=== PATIENT | female | born 1955 | race Caucasian/White ===

== ENCOUNTER → 2024-01-01 07:42 | Outpatient (REF) | payer OTHER, SELFPAY | LOC: HWWDC 07:42 | PROVIDERS: ATTENDING PHYSICIAN Family Medicine | DX: Z12.31 Encounter for screening mammogram for malignant neoplasm of breast (principal) | CPT/HCPCS: 77063; 77067 ==

== ENCOUNTER → 2024-05-26 13:50 | Outpatient (REF) | payer OTHER, SELFPAY | LOC: HWRCS 13:50 | PROVIDERS: ATTENDING PHYSICIAN Family Medicine | DX: R01.1 Cardiac murmur, unspecified (principal); R60.0 Localized edema; R05.3 Chronic cough | CPT/HCPCS: 93306 ==

== ENCOUNTER → 2024-06-13 08:28 | Outpatient (REF) | payer OTHER, SELFPAY | LOC: HWRAD 08:28 | PROVIDERS: ATTENDING PHYSICIAN Family Medicine | DX: E83.52 Hypercalcemia (principal); R79.89 Other specified abnormal findings of blood chemistry | CPT/HCPCS: 71046 ==

== ENCOUNTER 2024-06-26 15:52 | Inpatient (IN) | payer OTHER, SELFPAY ==
[2024-06-26] VITALS (9 sets, daily range): BP systolic 121–161; BP diastolic 72–120; BMI 22.9; BMI 25.5
--- NOTE | 2024-06-26 11:35 | ED.GENMED ---
History of Present Illness
General
Chief Complaint: Abnormal Lab Value
Source: patient
Time Seen by Provider: 06/26/24 11:14
History of Present Illness
History of Present Illness:
68yoF with a history of hyperlipidemia not currently on medications presenting for evaluation of an abnormal outpatient lab. Patient has been feeling generally unwell and fatigued for the past 1-2 months. She reports decreased p.o. intake and
shortness of breath. She has been following with her PCP for these symptoms. Patient had blood work on 06/17/2024 which showed a creatinine of 1.87 as well as a calcium of 12.6. Patient was initially referred to nephrology although she was called
today and advised to go to the ED for IV fluids.
Phy Exam
General Physical Exam
General Presentation: well appearing and no apparent distress
General age: appears stated age
General Skin: warm and dry
General Habitus: normal
General Mental: alert
Cardiovascular Exam
Cardiovascular Exam: regular rate/rhythm and no edema
Pulmonary Exam
Pulmonary Exam: lungs clear, no respiratory distress, no crackles and no wheezing
Gastrointestinal Exam
Gastrointestinal Exam: non tender, soft and non distended
Skin Exam
Skin Exam: normal color and warm/dry
Psychiatric Exam
Psychiatric Exam: normal mood/affect
Course
Orders/Labs/Results
Orders:
Orders
06/26/24 11:07
Electrocardiogram (*1) Urgent
Reason for Study: Other
Other Reason for Exam: abnormal calcium level
EKG- Treatment ONCE
06/26/24 11:31
Complete Blood Count/With Diff Urgent
Comprehensive Metabolic Panel Urgent
Magnesium Urgent
06/26/24 11:34
Electrocardiogram (*1) Urgent
Reason for Study: Fatigue / Weakness
06/26/24 11:35
0.9% Sodium Chloride 1000 ml [Nss] 1,000 ml IV BOLUS
06/26/24 12:03
Intact PTH Includes Calcium Urgent
PTH Related Peptide LC-MS/MS [S] Urgent
TSH Reflex To Free T4 Urgent
06/26/24 12:08
CT Chest/abd/pel Wo Iv Cont Urgent
Comment:
Reason For Exam: Generalized weakness, ANDRES, hypercalcemia
06/26/24 13:14
Urinalysis Reflex To Culture Urgent
Date Specimen was Collected: 06/26/24
Time Specimen was Collected: 12:12
Urine Microscopic Reflex Cult Urgent
06/26/24 15:26
Add On- LAB Urgent
Tests Added?: TSH with reflex FT4, Magnesium, Phosphorus serum, PTH, PTHrP
06/26/24 15:28
IRAD CONSULT Routine
Consulting Provider: Luis Enrique Collier
Was physician already notified: Yes
Reason for Consult/Procedure: biopsy mass
Acknowledgement that appropriate orders are entered: N/A
NEPHROLOGY CONSULT Routine
Consulting Provider: Yolanda Morillo
Was physician already notified: Yes
Reason for consult: ANDRES, hypercalcemia
ONCOLOGY CONSULT Routine
Consulting Provider: Jono Cutler
Was physician already notified: Yes
Reason for consult: peritoneal mass
06/26/24 15:30
0.9% Sodium Chloride 1000 ml [Nss] 1,000 ml IV 125 mls/hr
Abnormal Lab Results
06/26/24 06/26/24
11:31 13:14
Hgb 11.4 L g/dL
(12.0-16.0)
Hct 33.4 L %
(37.0-47.0)
MCV 77.1 L fL
(81.0-99.0)
MCH 26.3 L pg
(27.0-31.0)
Absolute Lymphs (auto) 0.8 L 10^3/uL
(1.2-3.4)
Neutrophils % 82.0 H %
(42.2-75.2)
Lymphocytes % 10.1 L %
(20.5-51.1)
Chloride 97 L mmol/L
(98-107)
BUN 24 H mg/dl
(7-17)
Creatinine 1.9 H mg/dL
(0.6-1.0)
Glucose 129 H mg/dl
(70-99)
Calcium 13.0 H mg/dl
(8.4-10.2)
Ur Occult Blood Reflex 2+ A
(Negative)
Leukocyte Esterase Rfl Trace A
(Negative)
Urine Bacteria (Reflex) Few A
(Negative)
Urine Albumin (Reflex) 1+ A
(Neg - Trace)
06/26/24 11:31
06/26/24 11:31
Vital Signs
Initial and Last Documented VS:
Initial Vital Signs
Temp Pulse Resp BP Pulse Ox
97.8 F 99 18 145/91 95
06/26/24 11:04 06/26/24 11:04 06/26/24 11:04 06/26/24 11:04 06/26/24 11:04
Last Documented Vital Signs
Temp Pulse Resp BP Pulse Ox
97.8 F 85 20 148/72 99
06/26/24 11:04 06/26/24 14:15 06/26/24 14:15 06/26/24 14:00 06/26/24 14:15
MDM/Problems Addressed
Differential Diagnosis Includes:
68yoF here with elevated creatinine and calcium found on outpatient labs. She has been feeling unwell for several months with anorexia, malaise, and fatigue. Patient is afebrile and hemodynamically stable. She is well-appearing in no acute
distress. Exam reassuring. Differential diagnosis includes but is not limited to: Electrolyte abnormality, ANDRES, dehydration, malignancy
Initial ED plan: Check CBC, CMP, PTH, TSH, troponin/EKG, and UA. IV fluid bolus.
*EKG
Interpreted by ED Provider?: Yes
EKG Intrepretation Date: 06/26/24
Heart Rate: 85
Rate: normal
Rhythm: sinus
[place]: normal axis
Interval: normal interval
QRS Pattern: normal QRS
Ischemia: no ischemia
*Critical Care Note
Total Time (30-74mins, 75-104mins- exclusive of procedures): Not Applicable
Update Note
Update Note:
Creatinine 1.9 and calcium is 13. CT chest abdomen pelvis added. CT reveals a large retroperitoneal soft tissue mass, possible lymphoma. Patient was informed of this finding and was provided with a copy of her CT scan report. She was admitted
for further management
ED Attending Note
-
Portions of this chart may have been created with voice recognition software.� Occasional wrong word or��sound alike� substitutions may have occurred due to the inherent limitations of voice recognition software.
Discharge Plan
Departure
Patient Disposition: Admit
Date of Disposition: 06/26/24
Time of Disposition: 14:41
Presentation/result/management discussed w/ accepting MD/DO: Hospitalist
Discharge Problem:
Acute kidney injury, Hypercalcemia, Retroperitoneal mass
Prescriptions:
No Action
zinc sulfate 25 mg zinc (110 mg) Tablet
25 mg PO DAILY
ferrous sulfate 134 mg (27 mg iron) Tablet
134 mg PO DAILY
cholecalciferol (vitamin D3) [Vitamin D3] 25 mcg (1,000 unit) Tablet,Chewable
25 mcg PO DAILY
Referrals:
Beata Hernandez MD [Family Provider] -
Interventions
Interventions:
*Risk Screen - Suicide Last Done: 06/26/24 11:04
*General Assessment Last Done: 06/26/24 11:04
*Neglect/Abuse Screening Last Done: 06/26/24 11:04
ED- Fall Risk Assessment Last Done: 06/26/24 11:35
Discharge Date and Time
Print Language: URDU
[2024-06-26 11:41] LABS: % Basophils 0.5 % (0-2); % Eosinophils 0.9 % (0-6); % Immature Granulocytes 0.5 % (0-0.5); % Lymphocytes 10.1 % (20.5-51.1); Absolute Eosinophils 0.1 10^3/uL (0-0.7); Absolute Lymphocytes 0.8 10^3/uL (1.2-3.4); Absolute Monocytes 0.4 10^3/uL (0.1-0.6); Absolute Neutrophils 6.1 10^3/uL (1.4-6.5); Hematocrit 33.4 % (37.0-47.0); Hemoglobin 11.4 g/dL (12.0-16.0); Mean Corp Hgb Conc. 34.1 g/dL (33.0-37.0); Mean Corpuscular Hgb 26.3 pg (27.0-31.0); Mean Corpuscular Volume 77.1 fL (81.0-99.0); Nucleated Red Blood Cells % 0 %; Platelet Count 344 10^3/uL (130-400); Red Blood Cell Count 4.33 10^6/uL (4.20-5.40); Red Cell Dist. Width 14.5 % (11.5-14.5); White Blood Cell Count 7.4 10^3/uL (4.8-10.8)
[2024-06-26 11:52] LABS: ALT (SGPT) 18 U/L (0-35); AST (SGOT) 25 U/L (14-36); Albumin 3.9 g/dl (3.5-5.0); Alkaline Phosphatase 73 U/L (38-126); Blood Urea Nitrogen 24 mg/dl (7-17); Carbon Dioxide 30 mmol/L (22-30); Chloride 97 mmol/L (98-107); Estimated Creatinine Clearance 23 ml/min; Glucose 129 mg/dl (70-99); Potassium 4.1 mmol/L (3.5-5.1); Sodium 137 mmol/L (135-145); Total Bilirubin 0.7 mg/dl (0.2-1.3); Total Protein 6.9 g/dl (6.3-8.2); eGFR 28.06
[2024-06-26] MEDS: NSS 1000 IV ×2 (12:02→17:24)
[2024-06-26 13:03] LABS: TSH Reflex To Free T4 2.04 uIU/ml (0.47-4.68)
[2024-06-26 13:28] LABS: Urine Albumin 1+ (Neg - Trace); Urine Bilirubin Negative (Negative); Urine Character Clear (Clear); Urine Color Yellow; Urine Glucose Negative (Negative); Urine Ketone Negative (Negative); Urine Leukocyte Trace (Negative); Urine Nitrite Negative (Negative); Urine Occult Blood 2+ (Negative); Urine Specific Gravity 1.025 (<1.030); Urine Urobilinogen Negative (Neg - 1+)
[2024-06-26 14:01] LABS: Urine Bacteria Few (Negative)
[2024-06-26 14:02] LABS: Urine Red Blood Cell 0-2 /HPF (0-2)
--- NOTE | 2024-06-26 15:41 | HPS.HSE ---
Family Physician
-
Family Physician: Beata Hernandez MD
Chief Complaint
-
malaise
History of Present Illness
68yo F with PMHx of JIMMY came with abnormal Cr and hypercalcemia as sent by her PCP. She was prety active but started to feel unwell appr 3 mo ago with generalized malaise. She also lost 15 lbs of weight over same period of time. Noticed absence of
appetite, food tasting bad, disguss to the meat and percepting all food to bee too salty as well as not smelling right.
In ED CT chest/abd/pelvis showed thyroid nodule and large peritoenal mass circumventing aorta and IVC. No UE or LE swelling seen. ALso Hypercalcemia to 13
Medical History
Past Medical History
Past Medical History: Reports None
Past Surgical History: Reports None
Social History
Tobacco: Non-smoker
Alcohol: None
Drug: None
Family History
Family History: Not pertinent
Allergies / Home Medications
Allergies reflects when Allergies were last updated in [facility].
Home Medications with original date entered in [facility]
Allergy/Medication List:
Allergies
Allergy/AdvReac Type Severity Reaction Status Date / Time
No Known Allergies Allergy Unverified 06/26/24 11:03
Home Medications
cholecalciferol (vitamin D3) 25 mcg (1,000 unit) chewable tablet (Vitamin D3) 25 mcg PO DAILY 06/26/24
ferrous sulfate 134 mg (27 mg iron) tablet 134 mg PO DAILY 06/26/24
zinc sulfate 25 mg zinc (110 mg) tablet 25 mg PO DAILY 06/26/24
Review of Systems
-
History Source: Patient
A 12 point ROS was completed and negative except as noted: Yes
Constitutional: Reports Weight Loss and Fatigue
Physical Exam
Vital Signs
Vital Signs
Temp Pulse Resp BP Pulse Ox
97.8 F 85 20 148/72 99
06/26/24 11:04 06/26/24 14:15 06/26/24 14:15 06/26/24 14:00 06/26/24 14:15
Physical Exam
General: No Apparent Distress
HEENT: NormoCephalic, Anicteric and Other (Chronic R eyelid proptosis)
Respiratory: Clear; No Wheezes, Rales or Rhonchi
Cardiac: S1/S2 and Murmur
GI: Soft, Non Tender, Non Distended and Normal Bowel Sounds
Musculoskeletal: No Clubbing, No Cyanosis and No Edema
Skin: Warm
Neuro: Awake, Alert, Oriented and AO x 3
Psych: Calm
Laboratory Results
-
06/26/24 11:31
06/26/24 11:31
Laboratory Results
Total Bilirubin 0.7 mg/dl (0.2-1.3) 06/26/24 11:31
AST 25 U/L (14-36) 06/26/24 11:31
ALT 18 U/L (0-35) 06/26/24 11:31
Alkaline Phosphatase 73 U/L (38-126) 06/26/24 11:31
Data Reviewed
-
CT Scan: Report Reviewed by me
Lab Data: Labs Reviewed by me
Impression/Plan
-
A/P:
#Peritoneal mass
IRAD for biopsy
Onc consult
#Hypercalcemia
#ANDRES
Urine studies
IVF
Nephro consult
Check PTH, PTHrP
UA showed albuminuria
Check SPAP, UPAP
#Thyroid nodule
outpatient US thyroid
TSH WNL
#Midsystolic murmur
Echo
#Elevated BP without diagnosis of HTN
follow trend
#JIMMY
cont iron
DVT ppx on hep
Full code
I have spent at least 78min admitting the patient, reviewing chart, test results, communicating with consultants and direct patient care
[2024-06-26 16:13] LABS: Phosphorus 3.5 mg/dl (2.5-4.5)
--- NOTE | 2024-06-26 17:00 | PTCARENOTE ---
Received patient from ED via stretcher. AAOx3, ambulated to room. Assessed and oriented to room. laboratory monitor NSR. Call de la cruz in close reach.
--- NOTE | 2024-06-26 17:04 | W.CON.NEPH ---
Consultation
-
Date/Time Consultation Requested: 06/26/24 1528
Date/Time Consultation Performed: 06/26/24 1715
Requesting Provider: Eric Uribe
Performing Provider: Yolanda Waldrop
Reason for Consultation: ANDRES
Medical History
-
Chief Complaint: abnormal labs -high cr and calcium
History of Present Illness:
68yo F with no significant PMHx of JIMMY on PO iron came with abnormal Cr and hypercalcemia as sent by her PCP. Since last 2months pt felt fatigue and lack appetite, nausea. But was able to maintain fluids. Lost 15lbs. SHe has intermittent ankle edema
with out pain. Before 2 months ago she was very active. Offers no dizziness. No NSAIDs use. No CP or SOB or abd pain. no fever or sweating. No change in urine volume. Her labs noted cr 1.9 and luís 13.
In ED CT chest/abd/pelvis showed thyroid nodule and large peritoenal mass circumventing aorta and IVC, mild bilat hydronephrosis.
Past Medical History
none
Social History
Tobacco: Non-Smoker
Alcohol: None
Drug: None
Employment: Retired
Family History
Mom side heart disease, father lived upto 92
Family History: Not Pertinent
Allergies / Home Medications
Allergy/AdvReac Type Severity Reaction Status Date / Time
No Known Allergies Allergy Unverified 06/26/24 11:03
�Medication �Instructions �Recorded �Confirmed �Type
cholecalciferol (vitamin D3) 25 25 mcg PO DAILY 06/26/24 06/26/24 History
mcg (1,000 unit) chewable tablet
(Vitamin D3)
ferrous sulfate 134 mg (27 mg 134 mg PO DAILY 06/26/24 06/26/24 History
iron) tablet
zinc sulfate 25 mg zinc (110 mg) 25 mg PO DAILY 06/26/24 06/26/24 History
tablet
Review of Systems
-
All complete 12 point ROS have been inquired and found negative other than stated in HPI
All other systems: Negative unless noted
Physical Exam
Vital Signs
Vital Signs
Temp Pulse Resp BP Pulse Ox
97.8 F 83 20 161/81 99
06/26/24 11:04 06/26/24 15:45 06/26/24 15:45 06/26/24 15:00 06/26/24 16:30
Lab Results
WBC 7.4 10^3/uL (4.8-10.8) 06/26/24 11:31
RBC 4.33 10^6/uL (4.20-5.40) 06/26/24 11:31
Hgb 11.4 g/dL (12.0-16.0) L 06/26/24 11:31
Hct 33.4 % (37.0-47.0) L 06/26/24 11:31
Plt Count 344 10^3/uL (130-400) 06/26/24 11:31
Sodium 137 mmol/L (135-145) 06/26/24 11:31
Potassium 4.1 mmol/L (3.5-5.1) 06/26/24 11:31
Chloride 97 mmol/L (98-107) L 06/26/24 11:31
Carbon Dioxide 30 mmol/L (22-30) 06/26/24 11:31
BUN 24 mg/dl (7-17) H 06/26/24 11:31
Creatinine 1.9 mg/dL (0.6-1.0) H 06/26/24 11:31
eGFR 28.06 06/26/24 11:31
Glucose 129 mg/dl (70-99) H 06/26/24 11:31
Calcium TNP 06/26/24 12:03
Phosphorus 3.5 mg/dl (2.5-4.5) 06/26/24 11:31
Albumin 3.9 g/dl (3.5-5.0) 06/26/24 11:31
CT chest/abd/pelvis with out contrast:
IMPRESSION:
1). There is 7 x 11 x 14 cm intermediate density retroperitoneal soft tissue mass, the differential diagnosis for which includes lymphoma and retroperitoneal fibrosis. There is mild associated bilateral hydronephrosis
2). Atherosclerosis.
3).There is a 17 mm low-density left thyroid mass which, if clinically indicated, could be best further evaluated and followed with thyroid ultrasound
4). Degenerative disc disease at L5-S1
Physical Exam
General: Awake, Alert, Oriented, AOx3, No Distress and Nontoxic
HEENT: EOMI, Anicteric, Conjunctivae Clear, Facial Symmetry and Neck Supple
Respiratory: Clear, Normal Excursion and Nonlabored Respirations
Cardiac: S1/S2, Regular Rate/Rhythm and Murmur
Breast: Deferred by me
Abdomen: Soft, Nontender and Nondistended
Musculoskeletal: No Cyanosis and No Edema
Skin: No Rash
Neuro: Nonfocal/Grossly Intact
Psych: Mood/afflect pleasant, Insight/judgement good and Appropriate
Data Reviewed
-
Radiology: Report Reviewed by me and Discussed with Patient
Labs: Labs Reviewed by me and Discussed with Patient
Assessment/Plan
-
IMP:
Peritoneal mass
Hypercalcemia
ANDRES
Thyroid nodule
Midsystolic murmur
Elevated BP without diagnosis of HTN
JIMMY
PLan:
A/w high cr and calcium
ANDRES-no basleine to review , UA bld +ve, no RBC, 1+alb-check U PCR
given CT findings likely obst and prerenal with decreased po intake
monitor UOP if poor may consider eval for mild bilat hydro ?extrinsic compression, follow bladder scan
hypercalcemia-mass noted in CT for biopsy tomorrow by IR
PTH PTHrP pending, onc consulted
agree with IVF and dose pamidronate
microcytic anemia-check fe studies
d/w pt
[2024-06-26] MEDS: HEPARIN 5000 UNITS SC (17:26)
[2024-06-26] MEDS: AREDIA 270 MG IV (18:00)
[2024-06-26 18:11] LABS: Urine Protein 103 mg/dl (0-12); Urine Sodium 29 mmol/L (30-90)
[2024-06-26 20:04] LABS: Osmolality Urine 405 mOsm/kg (300-900)
[2024-06-26 21:32] LABS: Urine Sodium 77 mmol/L (30-90)
[2024-06-27] VITALS (10 sets, daily range): BP systolic 85–152; BP diastolic 64–87; BMI 25.5
[2024-06-27] MEDS: HEPARIN 5000 UNITS SC ×3 (00:07→23:25)
[2024-06-27] MEDS: NSS 1000 IV ×3 (02:55→20:36)
[2024-06-27] MEDS: FEOSOL PO (08:44)
[2024-06-27] MEDS: HEPARIN SC (08:44)
--- NOTE | 2024-06-27 09:08 | CON.ONC ---
Documented by User: LYN Guzman 06/27/24 10:29
Impression
Impression
7 x 11 x 14 cm intermediate density retroperitoneal soft tissue mass
Hypercalcemia
Acute kidney injury
Mild bilateral hydronephrosis
Thyroid nodule
Generalized malaise/weakness
Unintentional weight loss ~15 lbs
Anorexia
Iron deficiency anemia
Plan
Plan
Monitor CBC w/ diff, CMP daily
06/26 Hgb 11.4, Hct 33.4, MCV 77
06/26 Creat 1.9, Calcium 13
Iron panel pending
SPEP/DORY, UPEP pending
Nephrology consult
IRAD consult for biopsy
Supportive care
Await pathology from biopsy.
We will follow.
Patient History
History of Present Illness
Lindsey Morales is a 68 year old female who presented to the ER yesterday, 06/26, with complaints of generalized weakness/malaise for 3 months with a 15lb weight loss and appetite loss. She notes taste changes contributing to appetite loss and
describes food having 'no taste'. Outpatient lab work ordered by PCP revealed abnormal creatinine and acute hypercalcemia for which she was instructed to proceed to the hospital for further evaluation. CT imaging performed in the ER showed a large
peritoneal mass. She denies evidence of atypical bleeding/bruising/melena/hematuria. She denies headache, dizziness, fever/chills, night sweats, N/V/D, joint pain, rashes, or abdominal pain. She is a nonsmoker. Denies ETOH or illicit drug use.
Denies family history of colon cancer.
Past-Medical/Surgical History
Iron deficiency anemia
Patient Medication
�Medication �Instructions �Recorded �Confirmed �Last Taken �Type
cholecalciferol (vitamin D3) 25 25 mcg PO DAILY 06/26/24 06/26/24 06/25/24 History
mcg (1,000 unit) chewable tablet
(Vitamin D3)
ferrous sulfate 134 mg (27 mg 134 mg PO DAILY 06/26/24 06/26/24 06/25/24 History
iron) tablet
zinc sulfate 25 mg zinc (110 mg) 25 mg PO DAILY 06/26/24 06/26/24 06/25/24 History
tablet
Active Medications
Generic Name Dose Route Start Last Admin
Trade Name Freq PRN Reason Stop Dose Admin
Acetaminophen 650 mg 06/26/24 16:51
Acetaminophen 325 Mg Tablet PO 07/24/24 16:50
Q4HPRN PRN
mild pain/LEMA/temp> 100.4F
Bisacodyl 10 mg 06/26/24 16:51
Bisacodyl 10 Mg Rectal Suppository RECTAL 07/24/24 16:50
[id number] PRN
constipation
Ferrous Sulfate 325 mg 06/27/24 08:00 06/27/24 08:44
Ferrous Sulfate 325 Mg Tablet PO 07/25/24 07:59 Not Given
DAILY JACK
Heparin Sodium 5,000 units 06/26/24 16:51 06/27/24 08:44
Heparin 5,000 Units/Ml 1 Ml Vial SC 07/24/24 16:50 Not Given
Q8 JACK
Sodium Chloride 1,000 mls @ 125 mls/hr 06/26/24 15:30 06/27/24 02:55
Nss IV 1,000 mls
.Q8H JACK Administration
Ondansetron HCl 4 mg 06/26/24 16:51
Ondansetron 4 Mg/2 Ml Vial IV 07/24/24 16:50
Q8HPRN PRN
nausea and vomiting
Polyethylene Glycol 17 grams 06/26/24 16:51
Polyethylene Glycol Powder 17 Grams Packet PO 07/24/24 16:50
DAILYPRN PRN
constipation
Senna/Docusate Sodium 1 tablet 06/26/24 16:51
Docusate W/Senna (Dory-Colace) Tablet PO 07/24/24 16:50
BIDPRN PRN
constipation
Sodium Chloride 0 flush 06/26/24 17:00
Sodium Chloride 0.9% (Flush) Syringe IV 07/24/24 16:59
PER PROTOCOL JACK
Review of Systems
-
History Source: Patient, Coordinated Provider and Records
Constitutional: Reports Weight Loss, No Appetite and Fatigue
EENT: Reports No Symptoms
Respiratory: Reports No Symptoms
Cardiac: Reports No Symptoms
GI: Reports Anorexia
Breast: Reports N/A
: Reports No Symptoms
Musculoskeletal: Reports No Symptoms
Skin: Reports No Symptoms
Neuro: Reports No Symptoms
Endocrine: Reports No Symptoms
Hematologic/Lymphatic: Reports No Symptoms
Allergy / Immunology: Reports No Symptoms
Psych: Reports No Symptoms
Physical Exam
-
patient resting in bed. arouses to voice. she denies acute pain.
General: No Apparent Distress, Comfortable and Conversant
HEENT: Negative Jaundice
Cardiology: S1 and S2
Pulmonary: Clear
GI: Soft
Extremities: Pulses Present
Neurology: Non Focal
Skin: Warm and Dry
Hematologic / Lymphatic: Lymphadenopathy
Psych: Calm and Other (flat)
Labs
Lab Results
WBC 7.4 10^3/uL (4.8-10.8) 06/26/24 11:31
RBC 4.33 10^6/uL (4.20-5.40) 06/26/24 11:31
Hgb 11.4 g/dL (12.0-16.0) L 06/26/24 11:31
Hct 33.4 % (37.0-47.0) L 06/26/24 11:31
MCV 77.1 fL (81.0-99.0) L 06/26/24 11:31
MCH 26.3 pg (27.0-31.0) L 06/26/24 11:
MCHC 34.1 g/dL (33.0-37.0) 06/26/24 11:
RDW 14.5 % (11.5-14.5) 06/26/24 11:
Plt Count 344 10^3/uL (130-400) 06/26/24 11:
MPV 8.0 fL (7.4-10.4) 06/26/24 11:
Abs Immat Gran (auto) 0.0 10^3/uL (0-0.05) 06/26/24 11:
Absolute Neuts (auto) 6.1 10^3/uL (1.4-6.5) 06/26/24 11:
Absolute Lymphs (auto) 0.8 10^3/uL (1.2-3.4) L 06/26/24 11:
Absolute Monos (auto) 0.4 10^3/uL (0.1-0.6) 06/26/24 11:
Absolute Eos (auto) 0.1 10^3/uL (0-0.7) 06/26/24 11:
Absolute Basos (auto) 0.0 10^3/uL (0-0.2) 06/26/24 11:
Immature Gran % 0.5 % (0-0.5) 06/26/24 11:
Neutrophils % 82.0 % (42.2-75.2) H 06/26/24 11:
Lymphocytes % 10.1 % (20.5-51.1) L 06/26/24 11:
Monocytes % 6.0 % (1.7-9.3) 06/26/24 11:
Eosinophils % 0.9 % (0-6) 06/26/24 11:
Basophils % 0.5 % (0-2) 06/26/24 11:
Creatinine 1.9 mg/dL (0.6-1.0) H 06/26/24 11:
Vital Signs
Vital Signs
Temp Pulse Resp BP Pulse Ox
98.6 F 85 16 130/72 98
06/27/24 07:15 06/27/24 07:15 06/27/24 07:15 06/27/24 07:15 06/27/24 08:30
06/13/24 CXR: No active pulmonary process.
06/26/24 CT c/a/p: There is 7 x 11 x 14 cm intermediate density retroperitoneal soft tissue mass, the differential diagnosis for which includes lymphoma and retroperitoneal fibrosis. There is mild associated bilateral hydronephrosis. Atherosclerosis.
There is a 17 mm low-density left thyroid mass which, if clinically indicated, could be best further evaluated and followed with thyroid ultrasound Degenerative disc disease at L5-S1

Documented by User: Fco Flores MD 06/27/24 12:13
Plan
Plan
Monitor CBC w/ diff, CMP daily
06/26 Hgb 11.4, Hct 33.4, MCV 77
06/26 Creat 1.9, Calcium 13
Iron panel pending
SPEP/DORY, UPEP pending
Nephrology consult
IRAD consult for biopsy
Supportive care
Await pathology from biopsy.
We will follow.
Oncology/ Hematology Addendum:
Patient seen and evaluated and agree w/ SUPER[employer] note and plan as outlined
-retroperitoneal mass - for IR guided biopsy
-await pathology
Will continue to follow with you.
--- NOTE | 2024-06-27 09:43 | W.PN.HOSP.TC ---
Today's Communication/Plan
-
pending IRAD
cont IVF
Urology eval
Assessment / Plan
Assessment / Plan
68yo F with PMHx of JIMMY came with abnormal Cr and hypercalcemia as sent by her PCP. She was prety active but started to feel unwell appr 3 mo ago with generalized malaise. She also lost 15 lbs of weight over same period of time. Noticed absence of
appetite, food tasting bad, disguss to the meat and percepting all food to bee too salty as well as not smelling right.
In ED CT chest/abd/pelvis showed thyroid nodule and large peritoenal mass circumventing aorta and IVC. No UE or LE swelling seen. Also Hypercalcemia to 13, s/p Biphosphate on 06/26/24
A/P:
#Peritoneal mass
IRAD for biopsy
Onc consult
#Hypercalcemia
#ANDRES
Urine studies
IVF
Nephro consult
Check PTH, PTHrP
UA showed albuminuria
Check SPAP, UPAP
#Thyroid nodule
outpatient US thyroid
TSH WNL
#Midsystolic murmur
Echo
#Elevated BP without diagnosis of HTN
follow trend
#JIMMY
cont iron
#Mild bilateral hydronephrosis
Urology consult
currently monitoring Cr
DVT ppx on hep
Full code
I have spent at least 58min reviewing chart, test results, communicating with consultants and direct patient care
Anticipated Discharge: > 48 hours
Subjective/Interval History
-
Date of Service: June 27, 2024
Objective Data
-
Labs:
Laboratory Results
06/27/24
09:14
WBC Pending
Hgb Pending
Hct Pending
Plt Count Pending
PT Pending
INR Pending
Sodium Pending
Potassium Pending
Chloride Pending
Carbon Dioxide Pending
BUN Pending
Creatinine Pending
Glucose Pending
Calcium Pending
Total Bilirubin Pending
AST Pending
ALT Pending
Alkaline Phosphatase Pending
Vital Signs:
Vital Signs
Temp Pulse Resp BP Pulse Ox
98.6 F 85 16 130/72 98
06/27/24 07:15 06/27/24 07:15 06/27/24 07:15 06/27/24 07:15 06/27/24 08:30
Review of Systems
-
History Source: Patient
All other systems: Reviewed and negative
Physical Exam
-
General: Well Developed and Well Nourished
HEENT: Normocephalic
GI: Soft, Nontender and Nondistended
Genito-urinary: No Costovertebral Tender
Musculoskeletal: No Clubbing, No Cyanosis and No Edema
Neuro: Awake, Alert, Oriented and AO x 3
Psych: Calm
[2024-06-27 09:53] LABS: % Basophils 0.5 % (0-2); % Eosinophils 0.8 % (0-6); % Immature Granulocytes 0.6 % (0-0.5); % Lymphocytes 9.7 % (20.5-51.1); % Monocytes 5.9 % (1.7-9.3); % Neutrophils 82.5 % (42.2-75.2); Absolute Eosinophils 0.1 10^3/uL (0-0.7); Absolute Lymphocytes 0.6 10^3/uL (1.2-3.4); Absolute Monocytes 0.4 10^3/uL (0.1-0.6); Absolute Neutrophils 5.3 10^3/uL (1.4-6.5); Hematocrit 29.8 % (37.0-47.0); Mean Corp Hgb Conc. 33.6 g/dL (33.0-37.0); Mean Corpuscular Volume 77.6 fL (81.0-99.0); Mean Platelet Volume 8.6 fL (7.4-10.4); Nucleated Red Blood Cells % 0 %; Platelet Count 324 10^3/uL (130-400); Red Blood Cell Count 3.84 10^6/uL (4.20-5.40); Red Cell Dist. Width 14.6 % (11.5-14.5); White Blood Cell Count 6.4 10^3/uL (4.8-10.8)
--- NOTE | 2024-06-27 09:59 | W.PN.URO.CBU ---
Today's Communication / Plan
-
Follow BMP: if worsens progressively patient would need bilateral percutaneous nephrostomy tubes
Advise biopsy of RP mass to inform therapy
No role or indication for surgical intervention at this time
Assessment / Plan
-
Large retroperitoneal mass of unclear etiology
Mild bilateral hydronephrosis likely due to extrinsic compression of both ureters
ANDRES
Diagnosis
-
Date of Service: June 27, 2024
-
Patient Diagnosis:
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
Mild bilateral hydronephrosis
ANDRES
Subjective
-
No flank pain
No voiding dysfunction
No gross hematuria
Objective
-
Vital Signs
Temp Pulse Resp BP Pulse Ox
98.6 F 85 16 130/72 98
06/27/24 07:15 06/27/24 07:15 06/27/24 07:15 06/27/24 07:15 06/27/24 08:30
Intake and Output
06/26/24 06/27/24 06/28/24
06:59 06:59 06:59
Other:
Number of approximated MODERATE 3
amounts of urine
Laboratory Results
06/27/24 09:14
06/26/24 CT scan images personally reviewed
Review of Systems
-
Constitutional: Fatigue
Respiratory: No Symptoms
Cardiac: No Symptoms
Abdomen/GI: No Symptoms
: No Symptoms
Neurological: No Symptoms
Physical Exam
-
General - well developed, well nourished, no acute distress
Abdomen - soft, non-tender
Skin - warm & dry with no rash
Neuro - AOx3, no motor deficits
Counseling
-
RP mass biopsy advised
[2024-06-27 10:00] LABS: INR 1.25; PT 15.5 Sec (11.4-14.6)
[2024-06-27 10:24] LABS: ALT (SGPT) 16 U/L (0-35); AST (SGOT) 24 U/L (14-36); Albumin 3.4 g/dl (3.5-5.0); Alkaline Phosphatase 63 U/L (38-126); Blood Urea Nitrogen 20 mg/dl (7-17); Calcium 11.7 mg/dl (8.4-10.2); Carbon Dioxide 25 mmol/L (22-30); Chloride 104 mmol/L (98-107); Estimated Creatinine Clearance 29 ml/min; Glucose 103 mg/dl (70-99); Iron 41 ug/dl (37-170); Magnesium 1.9 mg/dl (1.6-2.3); Potassium 4.3 mmol/L (3.5-5.1); Sodium 138 mmol/L (135-145); Total Bilirubin 0.7 mg/dl (0.2-1.3); Total Protein 6.3 g/dl (6.3-8.2); eGFR 37.26
[2024-06-27 10:34] LABS: Vitamin D, 25-OH*** 17.1 ng/mL (30-80)
[2024-06-27 10:35] LABS: Percent Saturation 19 % (20-50); Total Iron Binding Capacity 211 ug/dl (265-497)
[2024-06-27 11:08] LABS: Glycohemoglobin (HgbA1c) 6.2 % (4.0-5.6)
--- NOTE | 2024-06-27 14:01 | W.PN.NEPH.PH ---
Today's Communication / Plan
-
- for biopsy today
- trend Cr
Assessment/Plan
-
IMP:
Peritoneal mass
Hypercalcemia
ANDRES
Thyroid nodule
Midsystolic murmur
Elevated BP without diagnosis of HTN
JIMMY
PLan:
A/w high cr and calcium
ANDRES-no baseline to review , UA bld +ve, no RBC, 1+alb-check U PCR
given CT findings likely obst and prerenal with decreased po intake
eval'd if kidney function worsening, might need bilateral PCN tubes.
hypercalcemia-s/p pamidronate and improving now. okay to c/w NS at 125cc/hr
mass noted in CT for biopsy today by IR
PTH PTHrP pending, onc consulted
microcytic anemia-check fe studies
d/w pt
-
-
Date of Service: June 27, 2024
CC / HPI / ROS
-
Chief Complaint:
hypercalcemia
History of Present Illness:
Cr elevated to 1.9, now down to 1.5
calcium peak 13, now down to 11.7
Review of Systems:
feeling well, just tired
Labs
-
Labs:
WBC 6.4 10^3/uL (4.8-10.8) 06/27/24 09:14
RBC 3.84 10^6/uL (4.20-5.40) L 06/27/24 09:14
Hgb 10.0 g/dL (12.0-16.0) L 06/27/24 09:14
Hct 29.8 % (37.0-47.0) L 06/27/24 09:14
Plt Count 324 10^3/uL (130-400) 06/27/24 09:14
Sodium 138 mmol/L (135-145) 06/27/24 09:14
Potassium 4.3 mmol/L (3.5-5.1) 06/27/24 09:14
Chloride 104 mmol/L (98-107) 06/27/24 09:14
Carbon Dioxide 25 mmol/L (22-30) 06/27/24 09:14
BUN 20 mg/dl (7-17) H 06/27/24 09:14
Creatinine 1.5 mg/dL (0.6-1.0) H 06/27/24 09:14
eGFR 37.26 06/27/24 09:14
Glucose 103 mg/dl (70-99) H 06/27/24 09:14
Calcium 11.7 mg/dl (8.4-10.2) H 06/27/24 09:14
Phosphorus 3.5 mg/dl (2.5-4.5) 06/26/24 11:31
Albumin 3.4 g/dl (3.5-5.0) L 06/27/24 09:14
Physical Exam
-
Vital Signs:
Vital Signs
Temp Pulse Resp BP Pulse Ox
98.4 F 85 23 152/73 97
06/27/24 13:53 06/27/24 13:53 06/27/24 13:53 06/27/24 13:53 06/27/24 13:53
Cardiovascular:: Regular rate and rhythm
Respiratory:: Bilateral: CTA
Lung Excursion:: Normal
Abdomen:: Nontender and Soft
Bowel Sounds:: Normal
Extremity Edema:: None: Bilateral:
Kaufman Catheter: No
[2024-06-27] MEDS: NSS IV (23:25)
[2024-06-28 00:24] VITALS: BP 121/66
[2024-06-28] MEDS: NSS 1000 IV (04:30)
[2024-06-28 06:09] LABS: Hematocrit 27.3 % (37.0-47.0); Hemoglobin 9.3 g/dL (12.0-16.0)
[2024-06-28 06:27] LABS: Blood Urea Nitrogen 16 mg/dl (7-17); Calcium 10.5 mg/dl (8.4-10.2); Carbon Dioxide 25 mmol/L (22-30); Chloride 106 mmol/L (98-107); Estimated Creatinine Clearance 31 ml/min; Glucose 93 mg/dl (70-99); Potassium 3.8 mmol/L (3.5-5.1); Sodium 139 mmol/L (135-145); eGFR 40.47
[2024-06-28 07:15] VITALS: BP 160/77
[2024-06-28] MEDS: HEPARIN 5000 UNITS SC ×3 (08:57→23:14)
[2024-06-28] MEDS: FEOSOL 325 MG PO (09:02)
[2024-06-28] MEDS: MIRALAX 17 GRAMS PO (09:14)
[2024-06-28 10:08] LABS: Intact PTH 13.2 pg/ml (13.6-85.8)
--- NOTE | 2024-06-28 11:05 | W.PN.URO.CBU ---
Today's Communication / Plan
-
no new inputt
Assessment / Plan
-
Large retroperitoneal mass of unclear etiology
Mild bilateral hydronephrosis likely due to extrinsic compression of both ureters
ANDRES
renal fxn improving
Diagnosis
-
Date of Service: June 28, 2024
-
Patient Diagnosis:
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
Mild bilateral hydronephrosis
ANDRES
Objective
-
Vital Signs
Temp Pulse Resp BP Pulse Ox
98.2 F 81 16 160/77 95
06/28/24 07:15 06/28/24 07:15 06/28/24 07:15 06/28/24 07:15 06/28/24 07:15
Intake and Output
06/27/24 06/28/24 06/29/24
06:59 06:59 06:59
Intake Total 600 / 1080 480 / 480
Balance 600 / 1080 480 / 480
Intake:
Oral fluids 600 / 1080 480 / 480
Other:
Number of approximated MODERATE 3 3 2
amounts of urine
Laboratory Results
06/28/24 05:48
06/28/24 05:48
Physical Exam
-
General - well developed, well nourished, no acute distress
Chest - clear bilaterally
Abdomen - soft, non-tender, positive bowel sounds, no CVAT, no incisional pain or distention
Genitalia - normal
Rectal - normal
Skin - warm & dry with no rash
Neuro - AOx3, no motor deficits
Extremities - no clubbing, no cyanosis, no edema
Incision - clean, dry
Dressing - clean, dry, intact
--- NOTE | 2024-06-28 12:47 | W.PN.HOSP.TC ---
Today's Communication/Plan
-
stop IVF
monitor Ca and Cr
Pending final Onc plan
Assessment / Plan
Assessment / Plan
68yo F with PMHx of JIMMY came with abnormal Cr and hypercalcemia as sent by her PCP. She was prety active but started to feel unwell appr 3 mo ago with generalized malaise. She also lost 15 lbs of weight over same period of time. Noticed absence of
appetite, food tasting bad, disguss to the meat and percepting all food to bee too salty as well as not smelling right.
In ED CT chest/abd/pelvis showed thyroid nodule and large peritoenal mass circumventing aorta and IVC. No UE or LE swelling seen. Also Hypercalcemia to 13, s/p Biphosphate on 06/26/24
A/P:
#Peritoneal mass
IRAD did biopsy
Path pending
Onc consult
#Hypercalcemia
#ANDRES
Urine studies
IVF
Nephro consult: cont hydration, s/p pamidromate
PTH low
check PTHrP
UA showed albuminuria
Check SPAP, UPAP
#Thyroid nodule
outpatient US thyroid
TSH WNL
#Midsystolic murmur 2/2 moderate
Echo done in May 2024
#Elevated BP without diagnosis of HTN
follow trend
#JIMMY
cont iron
#Mild bilateral hydronephrosis
Urology consult: if worsening kidney function - will need perutaneous nephrostomy
currently monitoring Cr
DVT ppx on hep
Full code
I have spent at least 38min reviewing chart, test results, communicating with consultants and direct patient care
Anticipated Discharge: 24 - 48 hours
Subjective/Interval History
-
Date of Service: June 28, 2024
Objective Data
-
Labs:
Laboratory Results
06/28/24
05:48
Hgb 9.3 L
Hct 27.3 L
Sodium 139
Potassium 3.8
Chloride 106
Carbon Dioxide 25
BUN 16
Creatinine 1.4 H
Glucose 93
Calcium 10.5 H
Vital Signs:
Vital Signs
Temp Pulse Resp BP Pulse Ox
98.2 F 81 16 160/77 95
06/28/24 07:15 06/28/24 07:15 06/28/24 07:15 06/28/24 07:15 06/28/24 07:15
I&O
06/27/24 06/28/24 06/29/24
06:59 06:59 06:59
Intake Total 600 / 1080 480 / 480
Balance 600 / 1080 480 / 480
Review of Systems
-
History Source: Patient
All other systems: Reviewed and negative
Physical Exam
-
General: No Apparent Distress
HEENT: Normocephalic
Respiratory: Clear to Auscultation
Cardiac: Regular Rhythm
GI: Soft, Nontender and Nondistended
Neuro: Awake, Alert, Oriented and AO x 3
--- NOTE | 2024-06-28 13:36 | W.PN.NEPH.PH ---
Today's Communication / Plan
-
- awaiting path onc
- stop IVF
Assessment/Plan
-
IMP:
Peritoneal mass
Hypercalcemia
ANDRES
Thyroid nodule
Midsystolic murmur
Elevated BP without diagnosis of HTN
JIMMY
PLan:
A/w high cr and calcium
ANDRES-no baseline to review , UA bld +ve, no RBC, 1+alb-check UPCR
given CT findings likely obst and prerenal with decreased po intake
eval'd if kidney function worsening, might need bilateral PCN tubes.
hypercalcemia-s/p pamidronate and improving now. encouraging PO intake, stopped IVF
s/p biopsy, pending path and onc
PTH low, PTHrP pending
microcytic anemia-check fe studies
d/w pt
-
-
Date of Service: June 28, 2024
CC / HPI / ROS
-
Chief Complaint:
hypercalcemia
History of Present Illness:
Cr elevated to 1.9, now down to 1.4
calcium peak 13, now down to 10.5
Review of Systems:
feeling well, just tired
Labs
-
Labs:
WBC 6.4 10^3/uL (4.8-10.8) 06/27/24 09:14
RBC 3.84 10^6/uL (4.20-5.40) L 06/27/24 09:14
Hgb 9.3 g/dL (12.0-16.0) L 06/28/24 05:48
Hct 27.3 % (37.0-47.0) L 06/28/24 05:48
Plt Count 324 10^3/uL (130-400) 06/27/24 09:14
Sodium 139 mmol/L (135-145) 06/28/24 05:48
Potassium 3.8 mmol/L (3.5-5.1) 06/28/24 05:48
Chloride 106 mmol/L (98-107) 06/28/24 05:48
Carbon Dioxide 25 mmol/L (22-30) 06/28/24 05:48
BUN 16 mg/dl (7-17) 06/28/24 05:48
Creatinine 1.4 mg/dL (0.6-1.0) H 06/28/24 05:48
eGFR 40.47 06/28/24 05:48
Glucose 93 mg/dl (70-99) 06/28/24 05:48
Calcium 10.5 mg/dl (8.4-10.2) H 06/28/24 05:48
Phosphorus 3.5 mg/dl (2.5-4.5) 06/26/24 11:31
Albumin 3.4 g/dl (3.5-5.0) L 06/27/24 09:14
Physical Exam
-
Vital Signs:
Vital Signs
Temp Pulse Resp BP Pulse Ox
98.2 F 81 16 160/77 95
06/28/24 07:15 06/28/24 07:15 06/28/24 07:15 06/28/24 07:15 06/28/24 07:15
Cardiovascular:: Regular rate and rhythm
Respiratory:: Bilateral: CTA
Lung Excursion:: Normal
Abdomen:: Nontender and Soft
Bowel Sounds:: Normal
Extremity Edema:: None: Bilateral:
Kaufman Catheter: No
[2024-06-28 15:05] VITALS: BP 144/72
--- NOTE | 2024-06-28 18:09 | PTCARENOTE ---
Patient with dinner accu check of 67. Juice given, accucheck than 61. Juice given for second time and accucheck 58. Dr. Price notified. Dextrose pushed see SARAH. Acccassyeck after 3rd treatment 134. Lantus dose changed for 20:00 to 15 units. Blood
sugar to be checked per protocol.
[2024-06-28] MEDS: SENOKOT-S 1 TABLET PO (20:42)
[2024-06-28 23:35] VITALS: BP 131/79
[2024-06-29 07:10] VITALS: BP 160/88
[2024-06-29 08:53] LABS: Blood Urea Nitrogen 13 mg/dl (7-17); Calcium 10.8 mg/dl (8.4-10.2); Carbon Dioxide 24 mmol/L (22-30); Chloride 101 mmol/L (98-107); Estimated Creatinine Clearance 31 ml/min; Glucose 105 mg/dl (70-99); Potassium 4.1 mmol/L (3.5-5.1); Sodium 137 mmol/L (135-145); eGFR 40.47
[2024-06-29] MEDS: HEPARIN 5000 UNITS SC ×3 (08:53→23:13)
[2024-06-29] MEDS: FEOSOL 325 MG PO (08:53)
[2024-06-29] MEDS: DULCOLAX 10 MG RECTAL (08:55)
--- NOTE | 2024-06-29 12:33 | W.PN.NEPH.PH ---
Today's Communication / Plan
-
- IVF
Assessment/Plan
-
IMP:
Peritoneal mass
Hypercalcemia
ANDRES
Thyroid nodule
Midsystolic murmur
Elevated BP without diagnosis of HTN
JIMMY
PLan:
A/w high cr and calcium
ANDRES-no baseline to review , UA bld +ve, no RBC, 1+alb-check UPCR
given CT findings likely obst and prerenal with decreased po intake
eval'd if kidney function worsening, might need bilateral PCN tubes but for now Cr steady
hypercalcemia-s/p pamidronate, stabilizing in the 10 range. will trial another round of IVF today.
s/p biopsy, pending path and onc
PTH low, PTHrP pending
microcytic anemia-check fe studies
d/w pt
-
-
Date of Service: June 29, 2024
CC / HPI / ROS
-
Chief Complaint:
hypercalcemia
History of Present Illness:
Cr elevated to 1.9, now down to 1.4
calcium peak 13, now down to 10.8
Review of Systems:
feeling well, just tired
Labs
-
Labs:
WBC 6.4 10^3/uL (4.8-10.8) 06/27/24 09:14
RBC 3.84 10^6/uL (4.20-5.40) L 06/27/24 09:14
Hgb 9.3 g/dL (12.0-16.0) L 06/28/24 05:48
Hct 27.3 % (37.0-47.0) L 06/28/24 05:48
Plt Count 324 10^3/uL (130-400) 06/27/24 09:14
Sodium 137 mmol/L (135-145) 06/29/24 07:30
Potassium 4.1 mmol/L (3.5-5.1) 06/29/24 07:30
Chloride 101 mmol/L (98-107) 06/29/24 07:30
Carbon Dioxide 24 mmol/L (22-30) 06/29/24 07:30
BUN 13 mg/dl (7-17) 06/29/24 07:30
Creatinine 1.4 mg/dL (0.6-1.0) H 06/29/24 07:30
eGFR 40.47 06/29/24 07:30
Glucose 105 mg/dl (70-99) H 06/29/24 07:30
Calcium 10.8 mg/dl (8.4-10.2) H 06/29/24 07:30
Phosphorus 3.5 mg/dl (2.5-4.5) 06/26/24 11:31
Albumin 3.4 g/dl (3.5-5.0) L 06/27/24 09:14
Physical Exam
-
Vital Signs:
Vital Signs
Temp Pulse Resp BP Pulse Ox
98.5 F 93 16 160/88 95
06/29/24 07:10 06/29/24 07:10 06/29/24 07:10 06/29/24 07:10 06/29/24 07:10
Cardiovascular:: Regular rate and rhythm
Respiratory:: Bilateral: CTA
Lung Excursion:: Normal
Abdomen:: Nontender and Soft
Bowel Sounds:: Normal
Extremity Edema:: None: Bilateral:
Kaufman Catheter: No
--- NOTE | 2024-06-29 12:47 | W.PN.HOSP.TC ---
Today's Communication/Plan
-
IVF as per nephro
BMP in AM
Pending final Onc plan
Assessment / Plan
Assessment / Plan
68yo F with PMHx of JIMMY came with abnormal Cr and hypercalcemia as sent by her PCP. She was prety active but started to feel unwell appr 3 mo ago with generalized malaise. She also lost 15 lbs of weight over same period of time. Noticed absence of
appetite, food tasting bad, disguss to the meat and percepting all food to bee too salty as well as not smelling right.
In ED CT chest/abd/pelvis showed thyroid nodule and large peritoenal mass circumventing aorta and IVC. No UE or LE swelling seen. Also Hypercalcemia to 13, s/p Biphosphate on 06/26/24. Improved on IVF
A/P:
#Peritoneal mass
IRAD did biopsy
Path pending
Onc consult
#Hypercalcemia
#ANDRES
Urine studies
IVF
Nephro consult: cont hydration, s/p pamidromate
PTH low
check PTHrP
UA showed albuminuria
Check SPAP, UPAP
#Thyroid nodule
outpatient US thyroid
TSH WNL
#Midsystolic murmur 2/2 moderate
Echo done in May 2024
#Elevated BP without diagnosis of HTN
follow trend
#JIMMY
cont iron
#Mild bilateral hydronephrosis
Urology consult: if worsening kidney function - will need perutaneous nephrostomy
currently monitoring Cr
DVT ppx on hep
Full code
I have spent at least 38min reviewing chart, test results, communicating with consultants and direct patient care
Anticipated Discharge: 24 - 48 hours
Subjective/Interval History
-
Date of Service: June 29, 2024
Objective Data
-
Labs:
Laboratory Results
06/29/24
07:30
Sodium 137
Potassium 4.1
Chloride 101
Carbon Dioxide 24
BUN 13
Creatinine 1.4 H
Glucose 105 H
Calcium 10.8 H
Vital Signs:
Vital Signs
Temp Pulse Resp BP Pulse Ox
98.5 F 93 16 160/88 95
06/29/24 07:10 06/29/24 07:10 06/29/24 07:10 06/29/24 07:10 06/29/24 07:10
I&O
06/28/24 06/29/24 06/30/24
06:59 06:59 06:59
Intake Total 600 / 1080 1680 / 1680
Balance 600 / 1080 1680 / 1680
Review of Systems
-
History Source: Patient
All other systems: Reviewed and negative
Physical Exam
-
General: No Apparent Distress
HEENT: Normocephalic
Respiratory: Clear to Auscultation
Cardiac: Regular Rhythm
GI: Soft, Nontender and Nondistended
Musculoskeletal: No Clubbing, No Cyanosis and No Edema
Neuro: Awake, Alert, Oriented and AO x 3
Psych: Calm
--- NOTE | 2024-06-29 13:07 | W.PN.URO.CBU ---
Today's Communication / Plan
-
no new input
Assessment / Plan
-
Large retroperitoneal mass of unclear etiology
Mild bilateral hydronephrosis likely due to extrinsic compression of both ureters
ANDRES
renal fxn improving
Diagnosis
-
Date of Service: June 29, 2024
-
Patient Diagnosis:
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
Mild bilateral hydronephrosis
ANDRES
Objective
-
Vital Signs
Temp Pulse Resp BP Pulse Ox
98.5 F 93 16 160/88 95
06/29/24 07:10 06/29/24 07:10 06/29/24 07:10 06/29/24 07:10 06/29/24 07:10
Intake and Output
06/28/24 06/29/24 06/30/24
06:59 06:59 06:59
Intake Total 600 / 1080 1680 / 1680
Balance 600 / 1080 1680 / 1680
Intake:
Oral fluids 600 / 1080 1680 / 1680
Other:
Number of approximated MODERATE 3 3
amounts of urine
Laboratory Results
06/28/24 05:48
06/29/24 07:30
Physical Exam
-
General - well developed, well nourished, no acute distress
Chest - clear bilaterally
Abdomen - soft, non-tender, positive bowel sounds, no CVAT, no incisional pain or distention
Genitalia - normal
Rectal - normal
Skin - warm & dry with no rash
Neuro - AOx3, no motor deficits
Extremities - no clubbing, no cyanosis, no edema
Incision - clean, dry
Dressing - clean, dry, intact
[2024-06-29] MEDS: NSS 1000 IV (13:33)
[2024-06-29 13:34] LABS: 24 Hour Urine Total Volume Random mL; Urine Collection Length Random hr; Urine Free Kappa Light Chains 261.97 mg/L (0.00-32.90); Urine Free Lambda Light Chains 61.99 mg/L (0.00-3.79)
[2024-06-29] MEDS: SENOKOT-S PO (14:16)
[2024-06-29] MEDS: MIRALAX 17 GRAMS PO (14:22)
[2024-06-29 15:28] VITALS: BP 142/82
[2024-06-29 23:30] VITALS: BP 139/74
[2024-06-30] MEDS: NSS 1000 IV (02:13)
[2024-06-30 06:00] VITALS: BMI 26.5
[2024-06-30 08:00] VITALS: BP 139/76
[2024-06-30 08:35] LABS: Blood Urea Nitrogen 12 mg/dl (7-17); Calcium 10.3 mg/dl (8.4-10.2); Carbon Dioxide 24 mmol/L (22-30); Chloride 104 mmol/L (98-107); Estimated Creatinine Clearance 36 ml/min; Glucose 106 mg/dl (70-99); Potassium 4.1 mmol/L (3.5-5.1); Sodium 139 mmol/L (135-145)
--- NOTE | 2024-06-30 09:22 | W.PN.HOSP.TC ---
Today's Communication/Plan
-
pt wants to go home
d/c IF cleared by all consultants
Assessment / Plan
Assessment / Plan
pt is a 68 year old female
Hypercalcemia with ANDRES--due to retroperitoneal mass--apprec renal/urology--creat improving to 1.2 today, calcium 10.3--urine negative for free monoclonal light chains--s/p pamidronate--PTH low, PTH related peptide pending
Peritoneal mass--s/p IR biopsy--path pending--apprec heme/IR--outpt follow up for biopsy results
Thyroid nodule--will need outpatient US thyroid--TSH WNL
Midsystolic murmur due to moderate --Echo done in May 2024
Elevated BP without diagnosis of HTN--follow trend--BP improved--no meds
chronic anemia--hx of iron deficiency anemia--cont iron
Mild bilateral hydronephrosis--due to retroperitoneal mass
DVT ppx on hep
Full code
Anticipated Discharge: Today
Subjective/Interval History
-
Date of Service: June 30, 2024
pt wants to go home
Objective Data
-
Labs:
Laboratory Results
06/30/24
06:55
Sodium 139
Potassium 4.1
Chloride 104
Carbon Dioxide 24
BUN 12
Creatinine 1.2 H
Glucose 106 H
Calcium 10.3 H
Vital Signs:
max temp for 24 hours
06/29/24
23:30
Temp 99.4 F
Vital Signs
Temp Pulse Resp BP Pulse Ox
99.2 F 94 17 139/76 95
06/30/24 08:00 06/30/24 08:00 06/30/24 08:00 06/30/24 08:00 06/30/24 08:00
I&O
06/29/24 06/30/24 07/01/24
06:59 06:59 06:59
Intake Total 1679 / 1679 1140 / 1140
Balance 1679 / 1679 1140 / 1140
Review of Systems
-
All other systems: Reviewed and negative
Physical Exam
-
General: Well Developed, Well Nourished and No Apparent Distress
HEENT: Normocephalic and Atraumatic
Respiratory: Clear to Auscultation; Negative Wheezes or Rhonchi
Cardiac: Regular Rhythm, S1/S2 and Murmur
GI: Soft, Nontender, Nondistended and Normal Bowel Sounds
Musculoskeletal: No Clubbing, No Cyanosis and No Edema
Neuro: Awake and Alert
[2024-06-30] MEDS: FEOSOL 325 MG PO (10:05)
[2024-06-30] MEDS: HEPARIN SC (10:07)
--- NOTE | 2024-06-30 11:45 | W.PN.ONC2 ---
Addendum entered and electronically signed by LYN Resendiz 07/08/24 12:03:
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 She has a hospital follow up with Dr. Gutierrez 07/15/2024 to review pathology and next steps in management.
Original Note:
Today's Communication / Plan
-
follow up SPEP/DORY, rPTH
Check LDH, uric acid, retic, LDH, haptoglobin. If uric acid is elevated consider allopurinol vs rasburicase depending on degree of elevation
follow for pathology, OP follow up will be arranged to review upon discharge
Impression
Impression
7 x 11 x 14 cm intermediate density retroperitoneal soft tissue mass
Hypercalcemia s/p aredia 06/26 with improvement of calcium 13->10.3. Low PTH
elevated urine kappa 262, urine lambda 62, UPEP negative for monoclonal protein
Acute kidney injury improved
Mild bilateral hydronephrosis due to extrinsic compression of both ureters
Thyroid nodule
Generalized malaise/weakness
Unintentional weight loss ~15 lbs
Anorexia
microcytosis
murmur
Plan
Plan
Monitor CBC w/ diff, CMP daily
Iron panel c/w AOCD
f/u SPEP/DORY, rPTH,
Check LDH, uric acid, retic, LDH, haptoglobin
Nephrology following
IR RP biopsy, follow for path
Subjective/Objective
Chief Complaint
creatinine 1.2, calcium 10.3, Hgb 9.3g/dL
Subjective
afebrile, no hypoxia or hypotension
denies pain, sob, dizziness, n/v/d/c or ab pain
ambulating independently
Vital Signs:
Vital Signs
Temp Pulse Resp BP Pulse Ox
99.2 F 94 17 139/76 95
08/26/24 08:00 06/30/24 08:00 06/30/24 08:00 06/30/24 08:00 06/30/24 08:00
Lab Results:
Laboratory Data
WBC 6.4 10^3/uL (4.8-10.8) 06/27/24 09:14
Hgb 9.3 g/dL (12.0-16.0) L 06/28/24 05:48
Plt Count 324 10^3/uL (130-400) 06/27/24 09:14
PT 15.5 Sec (11.4-14.6) H 06/27/24 09:14
INR 1.25 06/27/24 09:14
eGFR 48.70 06/30/24 06:55
Physical Exam
HEENT: Moist Mucous Membranes; No Jaundice
Cardiology: Normal Sinus Rhythm and Murmur
Pulmonary: Clear
GI: Soft
Extremities: Pulses Present; No Edema
Neuro: Non Focal
Review of Systems
Review of Systems
ROS notable for subjective, otherwise negative
--- NOTE | 2024-06-30 12:08 | W.PN.NEPH.PH ---
Today's Communication / Plan
-
follow BMP
Assessment/Plan
-
IMP:
Peritoneal mass
Hypercalcemia
ANDRES
Thyroid nodule
Midsystolic murmur
Elevated BP without diagnosis of HTN
JIMMY
Plan:
await bx results
needs OP hem/onc f/u
BMP in 1 week to follow calcium
await PTHrP
ok for dc from renal standpoint
-
-
Date of Service: June 30, 2024
CC / HPI / ROS
-
Chief Complaint:
hypercalcemia
History of Present Illness:
Cr elevated to 1.9, now down to 1.2
calcium peak 13, now down to 10.3
BP stable
Review of Systems:
feeling well
no CP/SOB
Labs
-
Labs:
WBC 6.4 10^3/uL (4.8-10.8) 06/27/24 09:14
RBC 3.84 10^6/uL (4.20-5.40) L 06/27/24 09:14
Hgb 9.3 g/dL (12.0-16.0) L 06/28/24 05:48
Hct 27.3 % (37.0-47.0) L 06/28/24 05:48
Plt Count 324 10^3/uL (130-400) 06/27/24 09:14
Sodium 139 mmol/L (135-145) 06/30/24 06:55
Potassium 4.1 mmol/L (3.5-5.1) 06/30/24 06:55
Chloride 104 mmol/L (98-107) 06/30/24 06:55
Carbon Dioxide 24 mmol/L (22-30) 06/30/24 06:55
BUN 12 mg/dl (7-17) 06/30/24 06:55
Creatinine 1.2 mg/dL (0.6-1.0) H 06/30/24 06:55
eGFR 48.70 06/30/24 06:55
Glucose 106 mg/dl (70-99) H 06/30/24 06:55
Calcium 10.3 mg/dl (8.4-10.2) H 06/30/24 06:55
Phosphorus 3.5 mg/dl (2.5-4.5) 06/26/24 11:31
Albumin 3.4 g/dl (3.5-5.0) L 06/27/24 09:14
Physical Exam
-
Vital Signs:
Vital Signs
Temp Pulse Resp BP Pulse Ox
99.2 F 94 17 139/76 95
06/30/24 08:00 06/30/24 08:00 06/30/24 08:00 06/30/24 08:00 06/30/24 08:00
Cardiovascular:: Regular rate and rhythm
Respiratory:: Bilateral: CTA
Lung Excursion:: Normal
Abdomen:: Nontender and Soft
Bowel Sounds:: Normal
Extremity Edema:: None: Bilateral:
[2024-06-30 13:07] LABS: Reticulocyte Count 1.4 % (0.4-2.8)
--- NOTE | 2024-06-30 13:40 | CM ---
CM met with Lindsey this afternoon prior to her discharge. She and her denied need for any services at this time. No concerns about medication or food costs.
Lindsey and her live in a 2 story home with attached garage. 1 entry step into the home, 12 to the second floor. Lindsey is (I) amb and adls, denies hx of SNF, VN, or DME.
Plan: Lindsey will return home with her with no needs identified.
PCP: Beata Hernandez
Pharmacy: [facility] in [place]
[2024-06-30 13:50] VITALS: BP 158/86
[2024-06-30 14:26] LABS: LDH 268 U/L (120-246); Uric Acid 3.9 mg/dl (2.5-6.2)
--- NOTE | 2024-06-30 14:26 | W.DCSUMMARY ---
Discharge Summary
Discharge Data
Date of Admission: 06/26/24
Date of Discharge: 06/30/24
-
Pending Results: Yes
Additional Pending Results:
pathology results from biopsy
Hospital Course
Primary care physician : Beata Hernandez
Principal Discharge diagnosis : Hypercalcemia with acute kidney injury and mild bilateral hydronephrosis due to retroperitoneal mass, thyroid nodule
Chronic Discharge diagnosis : Moderate aortic stenosis, elevated blood pressures without a diagnosis of essential hypertension, anemia of chronic disease along with iron deficiency anemia
Hospital Course : Patient is a 68-year-old female with a history of iron deficiency anemia who came in with an abnormal creatinine and hypercalcemia and was sent in by her primary care physician. She started to feel unwell approximately 3 months
prior to admission with generalized malaise. She also lost 15 pounds of weight over the same time period. She had an absence of appetite, food tasting bad, food not smelling right. CAT scan done of the chest abdomen and pelvis showed a thyroid
nodule and a large peritoneal mass circumventing the aorta and inferior vena cava. Calcium was noted to be 13. Patient was admitted.
Problem #1: Hypercalcemia with acute kidney injury and mild bilateral hydronephrosis due to the retroperitoneal mass. Patient was admitted and seen in consultation by nephrology, urology, and oncology. Patient underwent interventional radiology
biopsy of the retroperitoneal mass. Results are pending at this time. Patient did not require bilateral percutaneous nephrostomy tubes as creatinine did improve with IV fluids. Patient received pamidronate. Creatinine slowly improved down to 1.2
at the day of discharge and calcium of 10.3 on the day of discharge. Urinalysis was checked and the urine was also negative for free monoclonal light chains. Intact PTH was low but the parathyroid related peptide is still pending at this time.
Patient will follow-up with hematology/oncology for the biopsy results as an outpatient.
Problem #2: Thyroid nodule. This was found incidentally on the CAT scan. TSH was checked and was within normal limits. Patient will need an outpatient ultrasound of the thyroid.
Problem #3: All other medical issues. These include Moderate aortic stenosis, elevated blood pressures without a diagnosis of essential hypertension, anemia of chronic disease along with iron deficiency anemia. His medical issues were stable
during her hospitalization. Medications were continued as able. Patient did not require blood pressure medicines here in the hospital.
Patient has been cleared for discharge by nephrology. If there are any questions regarding this dictation or her hospital stay, please not hesitate to call. Our office number is [phone].
Important imaging findings :
CT CHEST/ABDOMEN/PELVIS IMPRESSION:
1). There is 7 x 11 x 14 cm intermediate density retroperitoneal soft tissue mass, the differential diagnosis for which includes lymphoma and retroperitoneal fibrosis. There is mild associated bilateral hydronephrosis
2). Atherosclerosis.
3).There is a 17 mm low-density left thyroid mass which, if clinically indicated, could be best further evaluated and followed with thyroid ultrasound
4). Degenerative disc disease at L5-S1
Discharge Plan
-
Patient Disposition: Home (Routine Discharge)
Discharge Diagnosis/Procedures: Hypercalcemia with acute kidney injury, peritoneal mass, thyroid nodule, moderate aortic stenosis, elevated blood pressures without diagnosis of essential hypertension, chronic anemia, mild bilateral hydronephrosis
Condition: Good
Diet: As tolerated
Activity: As tolerated
Driving Restrictions: As prior to admission
Bathing Restrictions: None
Referrals:
Jono Cutler DO [Active] - in one to two weeks
Suleiman Menezes MD [Active] - in three to four weeks
Yolanda Morillo MD [Active] - in two to three weeks
Beata Hernandez MD [Family Provider] - in less than 1 week
Prescriptions:
New
polyethylene glycol 3350 [HealthyLax] 17 gram Powder In Packet
17 g PO DAILYPRN PRN (Reason: constipation) Qty: 14 0RF
sennosides-docusate sodium 8.6-50 mg Tablet
1 tab PO BIDPRN PRN (Reason: constipation) Qty: 0 0RF
Continued
zinc sulfate 25 mg zinc (110 mg) Tablet
25 mg PO DAILY
ferrous sulfate 134 mg (27 mg iron) Tablet
134 mg PO DAILY
cholecalciferol (vitamin D3) [Vitamin D3] 25 mcg (1,000 unit) Tablet,Chewable
25 mcg PO DAILY
Discharge Orders:
Discharge Patient (As Directed); Ordered 06/30/24
Ordered By: Omaira Weiss
Discharge Date and Time
Discharge Date/Time: 06/30/24 14:00
Print Language: RWANDAN
[2024-07-01 11:09] LABS: Albumin 3.45 g/dL (3.75-5.01); Alpha 1 Globulin 0.45 g/dL (0.19-0.46); Alpha 2 Globulin 1.02 g/dL (0.48-1.05); SPEP IFE Reflex Not Done; Total Protein-Electrophoresis 6.6 g/dL (6.3-8.2)
[2024-07-01 22:36] LABS: PTH Related Peptide LC-MS/MS 2.9 pmol/L (0.0-3.4)
[2024-07-03 00:39] LABS: Haptoglobin 320 mg/dL (30-200)
--- NOTE | 2024-07-03 09:46 | PN.CDI ---
CDI
- -
CDI:
Physician Documentation Request
Admit Date: 06/26/24 15:52
Dear Doctor Abhishek,
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
Please indicate in your progress notes if you are in agreement that the above diagnosis is valid for this patient:
____ - Small B cell lymphoma is a valid diagnosis (Please include )
____ - Small B cell lymphoma is not a valid diagnosis for this patient
____ - Other
____ - Unable to determine
Use of terms such as suspected, likely, concern for, or probable are acceptable for a diagnosis that is being evaluated, monitored or treated as if it exists and can be coded in the inpatient setting, when documented at the time of discharge.
Thank you,
Jada Medina RN, BSN
CDI Specialist
tiger text
Please use your independent medical judgment in providing your response.
--- NOTE | 2024-07-03 09:52 | PN.CDI ---
Addendum entered and electronically signed by Omaira Weiss MD 07/05/24 07:18:
documentation is complete
Original Note:
CDI
- -
CDI:
Physician Documentation Request
Admit Date: 06/26/24 15:52
Dear Doctor Abhishek,
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
Please indicate in your progress notes if you are in agreement that the above diagnosis is valid for this patient:
____ - Small B cell lymphoma is a valid diagnosis (Please include )
____ - Small B cell lymphoma is not a valid diagnosis for this patient
____ - Other
Use of terms such as suspected, likely, concern for, or probable are acceptable for a diagnosis that is being evaluated, monitored or treated as if it exists and can be coded in the inpatient setting, when documented at the time of discharge.
Thank you,
Jada Medina RN, BSN
CDI Specialist
tiger text
Please use your independent medical judgment in providing your response.
== END 2024-06-30 14:00 | disposition home or self-care (01) | DRG 841 ==
LOC: 4 EAST ACU 15:52
PROVIDERS: Nurse Practitioner Acute Care; Physician Assistant; Radiology Diagnostic Radiology; Radiology Vascular & Interventional Radiology; ADMITTING PHYSICIAN Internal Medicine; ATTENDING PHYSICIAN Internal Medicine; CONSULT PHYSICIAN Internal Medicine; CONSULT PHYSICIAN Specialist; EMERGENCY PHYSICIAN Student in an Organized Health Care Education/Training Program; FAMILY PHYSICIAN Family Medicine; OTHER PHYSICIAN Internal Medicine Hematology & Oncology
PROC: 0WBH3ZX Excision of Retroperitoneum, Percutaneous Approach, Diagnostic (ICD-10-PCS; 2024-06-27)
DX: C83.03 Small cell B-cell lymphoma, intra-abdominal lymph nodes (principal); N13.30 Unspecified hydronephrosis; N17.9 Acute kidney failure, unspecified; D50.9 Iron deficiency anemia, unspecified; E04.1 Nontoxic single thyroid nodule; I35.0 Nonrheumatic aortic (valve) stenosis; R63.4 Abnormal weight loss; R63.0 Anorexia; Z68.22 Body mass index [BMI] 22.0-22.9, adult; E83.52 Hypercalcemia; E78.5 Hyperlipidemia, unspecified; M51.37 Other intervertebral disc degeneration, lumbosacral region; K59.00 Constipation, unspecified; R79.89 Other specified abnormal findings of blood chemistry; R03.0 Elevated blood-pressure reading, without diagnosis of hypertension; R06.02 Shortness of breath; R53.83 Other fatigue; R53.81 Other malaise; R53.1 Weakness; R60.0 Localized edema; R01.1 Cardiac murmur, unspecified
CPT/HCPCS: 88305; 49180; 71250; 74176; 77012; 80048; 80053; 81003; 81015; 82306; 82570; 82728; 83010; 83036; 83519; 83521; 83540; 83550; 83615; 83735; 83935; 83970; 84100; 84155; 84156; 84165; 84300; 84443; 84550; 85014; 85018; 85025; 85045; 85610; 86335; 88333; 88341; 88342; 93005; 96360; 96361; 99152; 99285; J2430

== ENCOUNTER → 2024-11-25 07:14 | Outpatient (REF) | payer OTHER, SELFPAY | LOC: HWRAD 07:14 | PROVIDERS: ATTENDING PHYSICIAN Internal Medicine Hematology & Oncology; FAMILY PHYSICIAN Family Medicine | DX: C83.03 Small cell B-cell lymphoma, intra-abdominal lymph nodes (principal) | CPT/HCPCS: 76536 ==

== ENCOUNTER → 2024-12-12 07:26 | Outpatient (REF) | payer OTHER, SELFPAY ==
[2024-12-12 07:45] VITALS: BP 151/76; BP_SYST 90
== END ==
LOC: RADI 07:26
PROVIDERS: ATTENDING PHYSICIAN Internal Medicine Hematology & Oncology; FAMILY PHYSICIAN Family Medicine
DX: E04.1 Nontoxic single thyroid nodule (principal)
CPT/HCPCS: 88173; 10005

== ENCOUNTER → 2024-12-16 07:33 | Outpatient (REF) | payer OTHER, SELFPAY | LOC: HWRAD 07:33 | PROVIDERS: ATTENDING PHYSICIAN Internal Medicine Critical Care Medicine; FAMILY PHYSICIAN Family Medicine | DX: R91.1 Solitary pulmonary nodule (principal) | CPT/HCPCS: 71250 ==

== ENCOUNTER → 2025-01-05 14:43 | Outpatient (REF) | payer OTHER, SELFPAY | LOC: HWWDC 14:43 | PROVIDERS: ATTENDING PHYSICIAN Family Medicine | DX: Z12.31 Encounter for screening mammogram for malignant neoplasm of breast (principal) | CPT/HCPCS: 77063; 77067 ==

== ENCOUNTER 2025-03-03 06:15 | Day surgery (SDC) | payer OTHER, SELFPAY ==
[2025-02-11 09:13] LABS: Hematocrit 43.8 % (37.0-47.0); Hemoglobin 14.7 g/dL (12.0-16.0); Mean Corp Hgb Conc. 33.6 g/dL (33.0-37.0); Mean Corpuscular Hgb 28.2 pg (27.0-31.0); Mean Corpuscular Volume 84.1 fL (81.0-99.0); Mean Platelet Volume 9.3 fL (7.4-10.4); Platelet Count 274 10^3/uL (130-400); Red Blood Cell Count 5.21 10^6/uL (4.20-5.40); Red Cell Dist. Width 14.1 % (11.5-14.5); White Blood Cell Count 3.9 10^3/uL (4.8-10.8)
[2025-02-11 09:21] LABS: INR 0.97; PT 13.4 Sec (11.4-14.6)
[2025-02-11 09:22] LABS: APTT 31.6 Sec (23.4-35.0)
[2025-02-11 09:38] LABS: ALT (SGPT) 24 U/L (0-35); AST (SGOT) 27 U/L (14-36); Albumin 4.9 g/dl (3.5-5.0); Alkaline Phosphatase 64 U/L (38-126); Blood Urea Nitrogen 25 mg/dl (7-17); Calcium 10.7 mg/dl (8.4-10.2); Carbon Dioxide 27 mmol/L (22-30); Chloride 105 mmol/L (98-107); Glucose 110 mg/dl (70-99); Potassium 4.7 mmol/L (3.5-5.1); Sodium 142 mmol/L (135-145); Total Bilirubin 0.8 mg/dl (0.2-1.3); Total Protein 8.1 g/dl (6.3-8.2); eGFR > 60.00
[2025-02-11 13:42] VITALS: BMI 24.8
[2025-03-03] VITALS (9 sets, daily range): BP systolic 122–164; BP diastolic 65–90; BMI 24.8
[2025-03-03] MEDS: HEPARIN 5000 UNITS SC (09:40)
[2025-03-03] MEDS: NORMOSOL-R/PLASMALYTE-A 1000 IV (09:55)
[2025-03-03] MEDS: TYLENOL ORAL SOLUTION 1000 MG PO (09:56)
--- NOTE | 2025-03-03 12:16 | OR.RPT ---
Operative Report
Operative Report
DATE OF OPERATION: March 03, 2025
PREOPERATIVE DIAGNOSIS: Left Thyroid Nodule Single - E041
POSTOPERATIVE DIAGNOSIS: Same
SURGEON: Galdino Santos M.D.
OPERATION: Left Total Thyroidectomy & Limited Neck Dissection - 71926
ANESTHESIA: GET
ESTIMATED BLOOD LOSS: 3 cc
DRAINS: None
SPECIMEN: left total thyroid lobe and isthmus, and level paratracheal tissue
FINDINGS: left thyroid nodule
COMPLICATIONS: None
PROCEDURE:
The patient was taken to the operating room and placed in the usual supine position. After adequate general endotracheal anesthesia was established, the patient�s neck was extended, prepped, and draped in the typical sterile fashion. A 4 cm
transcervical incision was made two fingerbreadths above the sternal notch. The skin incision was made with the #15 blade, which was taken through the skin into the subcutaneous tissue. The underlying platysma muscle was divided, and subplatysmal
flaps were created superiorly to the thyroid cartilage and inferiorly to the sternal notch. Strap muscles were identified and at the midline.
Attention was turned to the patient�s left thyroid lobe. The left thyroid lobe was mobilized medially. During this process, the left middle thyroid vein and inferior thyroid artery were dissected and ligated with Ligasure. There was a substernal
extension, which was delivered out of the mediastinum through the cervical incision. Next, the left superior pole was taken down by dissecting and transecting the superior pole vessels with a Ligasure. The left thyroid lobe was mobilized medially.
During this process, the left recurrent laryngeal nerve was identified and preserved throughout its entire course. The left superior parathyroid gland was identified and preserved. The left thyroid lobe with isthmus was resected off the trachea and
sent to the pathology department.
At this time, the left neck dissection was performed. The tissue between the left carotid artery to the trachea in the anterior mediastinum was carefully dissected. The previously identified recurrent laryngeal nerve and parathyroid glands were
preserved. The tissue was removed and sent to the pathology department.
After obtaining adequate hemostasis, the strap muscle was approximated with #3-0 Vicryl in a running fashion, and the platysma muscles were reapproximated with #3-0 Vicryl in an interrupted fashion, and the skin was approximated with #4-0 Monocryl
in a running subcuticular fashion. Steri-strips and sterile dressings were placed. The patient tolerated the procedure well. The final instrument, needle, and sponge counts were correct.
== END 2025-03-03 13:20 | disposition home or self-care (01) ==
LOC: SDS 06:15
PROVIDERS: ATTENDING PHYSICIAN Surgery; FAMILY PHYSICIAN Family Medicine
DX: E04.2 Nontoxic multinodular goiter (principal); E04.1 Nontoxic single thyroid nodule
CPT/HCPCS: 60252; 88307; 36415; 80053; 85027; 85610; 85730; 93005; C1776

== ENCOUNTER → 2025-04-06 07:34 | Outpatient (REF) | payer OTHER, SELFPAY | LOC: HWRAD 07:34 | PROVIDERS: ATTENDING PHYSICIAN Internal Medicine Critical Care Medicine; FAMILY PHYSICIAN Family Medicine | DX: R91.1 Solitary pulmonary nodule (principal) | CPT/HCPCS: 71250 ==